=== PATIENT | female | born 1975 | race Caucasian/White ===

== ENCOUNTER 2017-05-19 12:45 | Inpatient (IN) | payer OTHER ==
[~2017-05-19] VITALS: Ht 160 cm; Wt 69.1 kg
[2017-05-19 15:18] LABS: BASOPHILS # (AUTO) 0.03 K/uL (0.00-0.20); BASOPHILS % (AUTO) 0.3 % (0.0-2.0); EOSINOPHILS # (AUTO) 0.05 K/uL (0.00-0.70); EOSINOPHILS % (AUTO) 0.54 % (1.0-6.0); HEMATOCRIT 38.3 % (36-46); HEMOGLOBIN 12.7 g/dL (12.0-16.0); LYMPHOCYTES # (AUTO) 2.3 K/uL (1.0-4.8); LYMPHOCYTES % (AUTO) 23.7 % (22.0-44.0); MEAN CORPUSCULAR HEMOGLOBIN 28.4 pg (26.0-34.0); MEAN CORPUSCULAR HGB CONC 33.2 G/dL (31.0-37.0); MEAN CORPUSCULAR VOLUME 86 fL (80-100); MONOCYTES # (AUTO) 0.7 K/uL (0.1-1.0); MONOCYTES % (AUTO) 7.4 % (2.0-9.0); NEUTROPHILS # (AUTO) 6.5 K/uL (1.8-7.7); NEUTROPHILS % (AUTO) 68.1 % (40.0-70.0); PLATELET COUNT (AUTO) 371 K/uL (150-450); RED BLOOD CELL COUNT(AUTO) 4.47 MIL/uL (4.00-5.20); RED CELL DISTRIBUTION WIDTH 15.3 % (11.5-14.5); WHITE BLOOD COUNT (AUTO) 9.6 K/uL (4.5-11.0)
[2017-05-19] MEDS ORDERED: TOPI200T16 PO (15:37)
[2017-05-19] MEDS ORDERED: FLUO40CA PO (15:37)
[2017-05-19] MEDS ORDERED: LAMO100 PO (15:37)
[2017-05-19 15:41] LABS: ALANINE AMINOTRANSFERASE 25 U/L (12-78); ALBUMIN 3.2 g/dL (3.4-5.0); ASPARTATE AMINOTRANSFERASE 18 U/L (15-37); BILIRUBIN,TOTAL 0.2 mg/dL (0.1-1.0); CALCIUM, TOTAL 8.3 mg/dL (8.8-10.5); CHLORIDE 106 mmol/L (98-107); CREATININE 0.48 mg/dL (0.60-1.30); GLOMERULAR FILTR. RATE CALC > 60 mL/min (>60); POTASSIUM 3.9 mmol/L (3.5-5.1); SODIUM SERUM 141 mmol/L (136-145); TOTAL PROTEIN, SERUM 6.1 g/dL (6.4-8.2); UREA NITROGEN, BLOOD 14 mg/dL (7-18)
[2017-05-19 15:56] LABS: ANION GAP 7 mmol/L (8-16); CARBON DIOXIDE 28 mmol/L (22-29)
[2017-05-19] MEDS ORDERED: LORazepam 2 MG TABLET PO ONE (18:00)
[2017-05-19 22:03] VITALS: BP 135/88
[2017-05-19] MEDS ORDERED: TUBERCULIN, PURIFIED PROTEIN DERIVATIVE 5 TU/0.1 ML SYG ID ONE (22:45)
[2017-05-19] MEDS ORDERED: ZOLPIDEM TARTRATE 10 MG TABLET PO PRN (22:45)
[2017-05-19] MEDS ORDERED: HALOPERIDOL 5 MG TABLET PO PRN (22:45)
[2017-05-20 05:07] LABS: CHOL/HDL RATIO 3.2 (3.9-5.7)
[2017-05-20 09:22] VITALS: BP 131/79
[2017-05-20] MEDS: ASPIRIN 81 MG CHEWABLE TABLET PO SCH (10:13)
[2017-05-20] MEDS: LamoTRIgine 100 MG TABLET PO SCH (10:14)
[2017-05-20] MEDS: TOPIRAMATE 100 MG TABLET PO SCH (10:14)
[2017-05-20] MEDS: FLUoxetine HCL 20 MG CAPSULE PO SCH (10:14)
[2017-05-20 16:01] VITALS: BP 114/62
[2017-05-20] MEDS: LORazepam 2 MG TABLET PO PRN (17:17)
[2017-05-21 07:14] VITALS: BP 118/70
[2017-05-21 08:09] VITALS: BP 120/68
[2017-05-21] MEDS: ASPIRIN 81 MG CHEWABLE TABLET PO SCH (08:20)
[2017-05-21] MEDS: TOPIRAMATE 100 MG TABLET PO SCH (08:20)
[2017-05-21] MEDS: LamoTRIgine 100 MG TABLET PO SCH (08:20)
[2017-05-21] MEDS: FLUoxetine HCL 20 MG CAPSULE PO SCH (08:20)
[2017-05-21] MEDS: LORazepam 2 MG TABLET PO PRN ×3 (08:24→22:05)
[2017-05-21] MEDS ORDERED: ACETAMINOPHEN 325 MG TABLET PO PRN (16:30)
[2017-05-21 16:42] VITALS: BP 117/77
[2017-05-21] MEDS: IBUPROFEN 600 MG TABLET PO PRN (16:42)
[2017-05-22 06:49] VITALS: BP 103/60
[2017-05-22] MEDS: TOPIRAMATE 100 MG TABLET PO SCH (08:40)
[2017-05-22] MEDS: ASPIRIN 81 MG CHEWABLE TABLET PO SCH (08:40)
[2017-05-22] MEDS: FLUoxetine HCL 20 MG CAPSULE PO SCH (08:40)
[2017-05-22] MEDS: LamoTRIgine 100 MG TABLET PO SCH (08:40)
[2017-05-22 08:44] VITALS: BP 98/69
[2017-05-22] MEDS: LORazepam 2 MG TABLET PO PRN (14:41)
[2017-05-22 16:02] VITALS: BP 117/67
[2017-05-22] MEDS: IBUPROFEN 600 MG TABLET PO PRN (16:37)
[2017-05-22] MEDS ORDERED: HydrOXYzine PAMOATE 25 MG CAPSULE PO PRN (19:45)
[2017-05-23 05:56] VITALS: BP 100/62
[2017-05-23] MEDS: FLUoxetine HCL 20 MG CAPSULE PO SCH (08:23)
[2017-05-23] MEDS: LamoTRIgine 100 MG TABLET PO SCH (08:23)
[2017-05-23] MEDS: ASPIRIN 81 MG CHEWABLE TABLET PO SCH (08:23)
[2017-05-23] MEDS: TOPIRAMATE 100 MG TABLET PO SCH (08:23)
[2017-05-23 08:35] VITALS: BP 94/60
[2017-05-23] MEDS ORDERED: MAG HYDROX/AL HYDROX/SIMETH 30 ML SUSP UDCUP PO PRN (10:00)
[2017-05-23] MEDS: IBUPROFEN 600 MG TABLET PO PRN (12:40)
[2017-05-23] MEDS ORDERED: ASPI81 PO (13:43)
[2017-05-23] MEDS ORDERED: FLUO-191 PO (13:43)
[2017-05-24] MEDS ORDERED: PANTOPRAZOLE SODIUM 40 MG DR TABLET PO SCH (09:00)
== END 2017-05-23 14:26 | disposition home or self-care (01) | DRG 885 ==
LOC: EEVIPCON 12:47 → EMS 12:47 → AHU 20:17 → B3A 05-20 07:00
PROVIDERS: ADMIT Psychiatry & Neurology Psychiatry; ATTEND Psychiatry & Neurology Psychiatry
DX: F33.2 Major depressive disorder, recurrent severe without psychotic features (principal); I63.9 Cerebral infarction, unspecified; R45.851 Suicidal ideations; Z80.3 Family history of malignant neoplasm of breast; Z80.6 Family history of leukemia; Z86.73 Personal history of transient ischemic attack (TIA), and cerebral infarction without residual deficits; K21.9 Gastro-esophageal reflux disease without esophagitis; E88.09 Other disorders of plasma-protein metabolism, not elsewhere classified; D49.6 Neoplasm of unspecified behavior of brain; R56.9 Unspecified convulsions
CPT/HCPCS: 99285; G0480